=== PATIENT | male | born 1980 | race Caucasian/White ===

== ENCOUNTER 2021-03-04 13:54 | Outpatient (CLI) | payer OTHER ==
[2021-03-04 15:54] LABS: Hemoglobin 9.1 g/dL (13.5-17.5); Mean Corpuscular HGB CONC 31.1 g/dL (32.0-36.0); Mean Corpuscular Hemoglobin 24.5 pg (27.0-33.0); Mean Corpuscular Volume 78.8 fl (81.2-95.1); Mean Platelet Volume 12.1 fl (7.4-10.4); Platelet Count 90 10x3/uL (150-450); RBC Distribution Width 16.5 % (11.5-14.5); Red Blood Cell (RBC) Count 3.72 10x6/uL (4.32-5.72); White Blood Cell (WBC) Count 4.8 10x3/uL (3.5-10.5)
[2021-03-04 15:57] LABS: Anion Gap 13 mmol/L (10-20); BUN (Urea Nitrogen) 9 mg/dL (8.9-20.6); Calc. Creatinine Clearance 0 mL/min (70-130); Calcium 8.5 mg/dL (7.8-10.44); Carbon Dioxide 20 mmol/L (22-29); Chloride 111 mmol/L (98-107); Glucose 76 mg/dL (70-105); Potassium 3.7 mmol/L (3.5-5.1); Sodium 140 mmol/L (136-145)
[2021-03-05 21:37] LABS: SARS-CoV-2 PCR by NAA Not Detected (NotDetected)
== END 2021-03-04 13:55 | disposition home or self-care (01) ==
LOC: LABBT 13:54
PROVIDERS: ATTEND Neurological Surgery
DX: Z01.818 Encounter for other preprocedural examination (principal); M43.16 Spondylolisthesis, lumbar region; Z20.822 Contact with and (suspected) exposure to COVID-19
CPT/HCPCS: 80048; 85027; 93005; 93010; U0003; U0005

== ENCOUNTER 2021-03-09 06:04 | Day surgery (SDC) | payer OTHER ==
[2021-03-08 10:08] VITALS: BMI 41.2
[2021-03-09] MEDS ORDERED: Fentanyl 250 MCG/5 ML VIAL ONE (06:51)
[2021-03-09] MEDS ORDERED: Lidocaine 1% PF 5 ML VIAL ONE (07:31)
[2021-03-09] MEDS ORDERED: Albuterol Sulfate HFA (OR ONLY) ONE (07:31)
[2021-03-09] MEDS ORDERED: Rocuronium Bromide 10 MG/ML (10ML VIAL) ONE (07:31)
[2021-03-09] MEDS ORDERED: Ondansetron PF 4 MG/2 ML Vial ONE (07:31)
[2021-03-09] MEDS ORDERED: Dexamethasone 20 MG/5 ML VIAL ONE (07:31)
[2021-03-09] MEDS ORDERED: Esmolol 100 MG/10 ML VIAL ONE (07:31)
[2021-03-09] MEDS ORDERED: Glycopyrrolate 0.2 MG/ML 5 ML SYRINGE ONE (07:31)
[2021-03-09] MEDS ORDERED: PHENYLEPHRINE-NS 100 MCG/ML 10 ML SYRINGE ONE (07:31)
[2021-03-09] MEDS ORDERED: PROPOFOL 200 MG/20 ML VIAL ONE (07:31)
[2021-03-09] MEDS ORDERED: Midazolam HCl 2 mg/2 ml Vial ONE (08:06)
[2021-03-09] MEDS ORDERED: HYDROmorphone 2 MG/ML VIAL ONE ×3 (09:23→09:37)
[2021-03-09] MEDS ORDERED: Fentanyl 100 MCG/2 ML VIAL ONE (09:36)
[2021-03-09] MEDS ORDERED: Tamsulosin HCl 0.4 MG CAP ONE ×2 (10:50→19:09)
[2021-03-09] MEDS ORDERED: diphenhydrAMINE 50 MG/ML VIAL ONE (11:29)
[2021-03-09] MEDS ORDERED: HYDROcodone/Acetaminophen 5/325 mg Tablet ONE ×2 (13:11→16:58)
[2021-03-09] MEDS ORDERED: AFRIN NASAL MIST 15 ML BOT ONE (16:58)
[2021-03-09] MEDS ORDERED: tiZANidine HCl 4 MG TAB ONE (18:41)
== END 2021-03-09 19:30 | disposition home or self-care (01) ==
LOC: SDC 06:04
PROVIDERS: ATTEND Neurological Surgery
PROC: 0SG30K1 Fusion of Lumbosacral Joint with Nonautologous Tissue Substitute, Posterior Approach, Posterior Column, Open Approach (ICD-10-PCS; principal; 2021-03-09)
DX: M43.17 Spondylolisthesis, lumbosacral region (principal); I10 Essential (primary) hypertension; E66.01 Morbid (severe) obesity due to excess calories; Z68.41 Body mass index [BMI] 40.0-44.9, adult; Z79.899 Other long term (current) drug therapy; Z91.048 Other nonmedicinal substance allergy status; Z98.84 Bariatric surgery status
CPT/HCPCS: 76000; C1713; C1768; J0690; J1100; J1170; J1200; J2250; J2405; J2704; J3010; J3370

== ENCOUNTER 2021-03-30 12:40 | Outpatient (CLI) | payer OTHER | END 2021-03-30 12:41 | disposition home or self-care (01) | LOC: TBSIIMAG 12:40 | PROVIDERS: ATTEND Physician Assistant | DX: M43.16 Spondylolisthesis, lumbar region (principal); M43.17 Spondylolisthesis, lumbosacral region; M43.07 Spondylolysis, lumbosacral region; M47.817 Spondylosis without myelopathy or radiculopathy, lumbosacral region | CPT/HCPCS: 72100 ==